=== PATIENT | female | born 1980 | race Caucasian/White ===

== ENCOUNTER 2019-12-29 17:57 | Inpatient (IN) | payer MEDICAID, OTHER ==
--- NOTE | 2019-12-29 18:13 | ED ---
Psych HPI <Markie Starks - Last Filed: 12/29/19 18:12> <Alek Cardoza - Last Filed: 12/30/19 05:45> - General Source: patient, EMS, RN notes reviewed Mode of arrival: EMS - History of Present Illness MD Complaint: suicidal ideation, feels depressed <John Soriano - Last Filed: 12/30/19 12:15> - General Stated Complaint: Mental health Time Seen by Provider: 12/29/19 18:00 - History of Present Illness Initial Comments: This is a 39-year-old female history depression and who is been in treatment for substance abuse including alcohol and opiates for the past week who was brought in today by EMS because of voicing depression and suicidal thoughts and ideation. She apparently has had a plan to go to a home an overdose. She states that a lot of frustration she doing with today that set this off a. She denies any drug or alcohol use since treatment started. No fevers chills nausea vomiting sweats or other symptoms (John Soriano) - Related Data Home Medications Medication Instructions Recorded Confirmed Methadone HCl [Methadone Intensol] 90 mg PO DAILY 12/29/19 12/29/19 hydroCHLOROthiazide [Hydrodiuril] 25 mg PO DAILY 12/30/19 12/30/19 Allergies Allergy/AdvReac Type Severity Reaction Status Date / Time No Known Allergies Allergy Verified 12/29/19 22:35 Review of Systems ROS Other: All systems not noted in ROS Statement are negative. <Markie Starks - Last Filed: 12/29/19 18:12> ROS Other: All systems not noted in ROS Statement are negative. <Alek Cardoza - Last Filed: 12/30/19 05:45> ROS Other: All systems not noted in ROS Statement are negative. <John Soriano - Last Filed: 12/30/19 12:15> ROS Statement: Those systems with pertinent positive or pertinent negative responses have been documented in the HPI. General Exam General appearance: alert, anxious Head exam: Present: atraumatic, normocephalic, normal inspection Eye exam: Present: normal appearance, PERRL, EOMI. Absent: scleral icterus, conjunctival injection, periorbital swelling ENT exam: Present: normal exam, mucous membranes moist Neck exam: Present: normal inspection. Absent: tenderness, meningismus, lymphadenopathy Respiratory exam: Present: normal lung sounds bilaterally. Absent: respiratory distress, wheezes, rales, rhonchi, stridor Cardiovascular Exam: Present: regular rate, normal rhythm, normal heart sounds. Absent: systolic murmur, diastolic murmur, rubs, gallop, clicks GI/Abdominal exam: Absent: distended, tenderness, guarding, rebound, rigid Extremities exam: Present: normal inspection, full ROM, normal capillary refill. Absent: tenderness, pedal edema, joint swelling, calf tenderness Back exam: Present: normal inspection Neurological exam: Present: alert, oriented X3, CN II-XII intact Psychiatric exam: Present: depressed, suicidal ideation Skin exam: Present: warm, dry, intact, normal color. Absent: rash <John Soriano - Last Filed: 12/30/19 12:15> - General Exam Comments Initial Comments: This is a well-developed well-nourished awake alert oriented 3 female (John Soriano) Course <Alek Cardoza - Last Filed: 12/30/19 05:45> <John Soriano - Last Filed: 12/30/19 12:15> Vital Signs 12/29/19 12/30/19 18:19 06:00 Temperature 98.7 F 98.4 F Pulse Rate 77 94 Respiratory 18 18 Rate Blood Pressure 148/90 150/92 O2 Sat by Pulse 97 98 Oximetry - Reevaluation(s) Reevaluation #1: 12/29/19 21:17 Patient's care will be endorsed to Dr. Cardoza at our shift change (John Soriano) Reevaluation #2: 12/30/19 05:46 I did see this patient for the purpose of following clinical certificate (Alek Cardoza) Medical Decision Making - EKG Data -: EKG Interpreted by Me EKG shows normal: sinus rhythm, axis (Normal), intervals (Normal), QRS complexes (Normal) Rate: normal (Rate 69 bpm) Interpretation: nonspecific ST-T wave changes <Alek Cardoza - Last Filed: 12/30/19 05:45> - Lab Data Result diagrams: 12/30/19 09:14 12/30/19 09:14 <John Soriano - Last Filed: 12/30/19 12:15> - Lab Data Lab Results 0912/29/19 12/29/19 Range/Units 18:28 18:28 18:28 Urine Color Light Yellow Urine Appearance Clear (Clear) Urine pH 7.0 (5.0-8.0) Ur Specific [place] 1.011 (1.001-1.035) Urine Protein Negative (Negative) Urine Glucose (UA) Negative (Negative) Urine Ketones Negative (Negative) Urine Blood Negative (Negative) Urine Nitrite Negative (Negative) Urine Bilirubin Negative (Negative) Urine Urobilinogen <2.0 (<2.0) mg/dL Ur Leukocyte Esterase Small H (Negative) Urine RBC <1 (0-5) /hpf Urine WBC 1 (0-5) /hpf Ur Squamous Epith Cells <1 (0-4) /hpf Urine Mucus Rare H (None) /hpf Urine HCG, Qual Not Detected (Not Detectd) Urine Opiates Screen Not Detected (NotDetected) Ur Oxycodone Screen Not Detected (NotDetected) Urine Methadone Screen Detected H (NotDetected) Ur Propoxyphene Screen Not Detected (NotDetected) Ur Barbiturates Screen Not Detected (NotDetected) U Tricyclic Antidepress Not Detected (NotDetected) Ur Phencyclidine Scrn Not Detected (NotDetected) Ur Amphetamines Screen Not Detected (NotDetected) U Methamphetamines Scrn Not Detected (NotDetected) U Benzodiazepines Scrn Not Detected (NotDetected) Urine Cocaine Screen Not Detected (NotDetected) U Marijuana (THC) Screen Not Detected (NotDetected) Disposition <Markie Starks - Last Filed: 12/29/19 18:12> <Alek Cardoza - Last Filed: 12/30/19 05:45> <John Soriano - Last Filed: 12/30/19 12:15> Clinical Impression: Depression, Suicidal ideation Disposition: TRANSFER TO PSYCH HOSP/UNIT Condition: Stable
[2019-12-29 18:57] LABS: Amphetamine Screen,Urine Not Detected (NotDetected); Barbiturate Screen,Urine Not Detected (NotDetected); Benzodiazepines Screen,Urine Not Detected (NotDetected); Cocaine Screen,Urine Not Detected (NotDetected); Methadone Screen, Urine Detected (NotDetected); Opiate Screen,Urine Not Detected (NotDetected); Oxycodone Screen, Urine Not Detected (NotDetected); Phencyclidine Screen,Urine Not Detected (NotDetected); Tricyclic Antidepressant,Urine Not Detected (NotDetected); Urn Cannabinoid Scrn Not Detected (NotDetected)
[2019-12-29] MEDS ORDERED: LORazepam 1 MG TAB PO STA (19:53)
[2019-12-29] MEDS ORDERED: ACETAMINOPHEN TAB 500 MG TAB PO STA (19:58)
[2019-12-30] MEDS ORDERED: LORazepam 1 MG TAB PO STA (05:02)
[2019-12-30] MEDS ORDERED: LORazepam 1 MG TAB PO PRN (06:48)
[2019-12-30] MEDS ORDERED: ACETAMINOPHEN TAB 325 MG TAB PO PRN (06:48)
[2019-12-30] MEDS ORDERED: MAG HYDROX/AL HYDROX/SIMETH 30 ML CUP PO PRN (06:48)
[2019-12-30] MEDS ORDERED: LORazepam 2 MG/ML INJ IM PRN (06:51)
[2019-12-30 07:26] LABS: Appearance,Urine Clear (Clear); Bilirubin,Urine Negative (Negative); Blood,Urine Negative (Negative); Color,Urine Light Yellow; Glucose,Urine (UA) Negative (Negative); Ketones,Urine Negative (Negative); Leukocyte Esterase,Urine Small (Negative); Mucus,Urine Rare /hpf; Nitrite,Urine Negative (Negative); Protein,Urine Negative (Negative); RBC,Urine <1 /hpf (0-5); Specific Gravity,Urine 1.011 (1.001-1.035); Squamous Epithelial Cell,Urine <1 /hpf (0-4); Urobilinogen,Urine <2.0 mg/dL (<2.0); WBC,Urine 1 /hpf (0-5)
[2019-12-30] MEDS: METHADONE 10 MG TAB PO SCH (08:14)
[2019-12-30] MEDS ORDERED: NON FORMULARY DRUG (Methadone Hcl [Methadone Intensol] 10 MG/ML Oral.Conc) PO SCH (09:00)
[2019-12-30 09:45] LABS: Basophils # (A) 0.1 k/uL (0-0.2); Basophils % (A) 1 %; Eosinophils # (A) 0.1 k/uL (0-0.7); Eosinophils % (A) 1 %; HCT 42.9 % (34.0-46.0); HGB 13.5 gm/dL (11.4-16.0); Hypochromasia Slight; Lymphocytes # (A) 1.4 k/uL (1.0-4.8); Lymphocytes % (A) 12 %; MCHC 31.4 g/dL (31.0-37.0); MCV 89.3 fL (80.0-100.0); Mean Platelet Volume 8.6; Monocytes # (A) 0.6 k/uL (0-1.0); Monocytes % (A) 5 %; Neutrophils # (A) 9.3 k/uL (1.3-7.7); Neutrophils % (A) 80 %; Platelet Count 270 k/uL (150-450); RBC 4.81 m/uL (3.80-5.40); RDW 14.4 % (11.5-15.5); WBC 11.7 k/uL (3.8-10.6)
[2019-12-30 10:05] LABS: ALT 56 U/L (4-34); AST 39 U/L (14-36); African American GFR (CKD) >90 (>60 ml/min/1.73 sqM); Albumin 4.6 g/dL (3.5-5.0); Alkaline Phosphatase 120 U/L (38-126); Anion Gap 9 mmol/L; Blood Urea Nitrogen 15 mg/dL (7-17); Carbon Dioxide 26 mmol/L (22-30); Chloride 100 mmol/L (98-107); Cholesterol 168 mg/dL (<200); Glucose 130 mg/dL (74-99); HDL Cholesterol 52 mg/dL (40-60); LDL Cholesterol,Calculated 100 mg/dL (0-99); Non-African American GFR(CKD) 87 (>60 ml/min/1.73 sqM); Potassium 4.8 mmol/L (3.5-5.1); Sodium 135 mmol/L (137-145); Total Bilirubin 0.4 mg/dL (0.2-1.3); Total Protein 7.3 g/dL (6.3-8.2); Triglycerides 78 mg/dL (<150)
[2019-12-30] MEDS: OLANZapine 5 MG TAB PO SCH ×3 (12:47→21:16)
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
[2019-12-30 18:00] LABS: Hemoglobin A1C 5.5 % (4.0-6.0)
[2019-12-30] MEDS: MIRTAZAPINE 15 MG TAB PO SCH (21:16)
[2019-12-30] MEDS: OLANZapine 5 MG TAB PO PRN (22:23)
[2019-12-31] MEDS: ZIPRASIDONE 20 MG VIAL IM PRN (01:09)
[2019-12-31] MEDS: OLANZapine 5 MG TAB PO SCH ×2 (08:05→21:23)
[2019-12-31] MEDS: METHADONE 10 MG TAB PO SCH (08:05)
[2019-12-31] MEDS: OLANZapine 5 MG TAB PO PRN (11:07)
[2019-12-31] MEDS ORDERED: cloNIDine 0.2 MG/24HR PATCH TRANSDERM SCH (12:30)
--- NOTE | 2019-12-31 13:31 | PN ---
PROGRESS NOTE DATE OF SERVICE: 12/31/2019 CHIEF COMPLAINT: The patient was distressed and agitated. She had made a suicide statement at [facility]. She was admitted on petition for involuntary hospitalization. INTERVAL HISTORY: Patient has been doing fair. She had a quiet day yesterday. She did have some ups and downs. She talked about being distressed about being in the hospital. She also felt distressed with the idea that people misinterpreted what she was saying and doing when she was at [facility]. She said that if they would have given her some time to have some quiet time for herself and possibly be able to talk to a therapist that she would have been able to calm herself to the point of not needing to come to the hospital. She has had some ups and downs with anxiety. She slept fairly well last night. It is noted that at 1 in the morning, she woke up from a nightmare and could not get back to sleep. She received Geodon IM. She said after that she was able to sleep for the rest of the night. This morning she has been up. She attended groups this morning. She noted that someone from [facility] called her and was checking up to see how she was doing. She seemed to say that she got distressed with the phone call and that the person on the other end said that it was not possibly a good time to be talking as the phone conversation seemed to be upsetting her, so they ended the conversation. At this point, the patient says that she wants to return to [facility] as soon as possible. She gave some mixed information in regard to that, saying that she is still very angry at [facility] for not giving her the kind of support she thought she deserved. I encouraged the patient to give [facility] staff a call today to talk about possible return. She said that she was uncomfortable doing that and was wanting a manager social work to "advocate for me because I always feel people do not believe what I say." It is noteworthy that the patient seems a little more calm and reasonable today in her view of her situation. She still is discouraged about being in the hospital, though she has been cooperative. She did request a p.r.n. Zyprexa at 11 this morning, which would be in addition to the morning dose of 5 mg of Zyprexa. Vital signs at 8:00 am include blood pressure 169/90, pulse 103 and regular, temp 98.2, respirations 20. The patient tolerates her psychotropic medications. She does say she feels the Zyprexa makes her a little tired though she feels that it gives her some benefit. MENTAL STATUS EXAM: Patient sat without restlessness. She did not give much eye contact. She tended to look slightly down in her gaze. Her movements were slowed. She answered questions with brief responses. She was not too spontaneous or interactive. Her affect was flat. Her mood withdrawn. She was somewhat distressed. There was no indication of thought disorder. She denied thoughts of harm to self or others. Cognition was clear. ASSESSMENT: I will continue the current diagnosis and treatment plan. Continue to encourage the patient to engage in group activity. We talked about discharge planning. As noted, I encouraged the patient to call [facility], though her choice is to have a manager social work call on her behalf. There is a sense that the patient feels that she does not get the kind of support that she should be entitled to and seems to be searching for opportunities to have that displayed in a more concrete way. I will start the patient on Catapres patch 0.2 mg due to her high blood pressure, which in part may be related to withdrawal in that regard. Clonidine has been useful as an adjunct in withdrawal. I discussed discharge planning. Patient asked whether it was likely she could be discharged back to [facility] on Thursday. I shared with her that it is uncertain in that she would be seeing a new doctor to her on Thursday. I strongly encouraged her to attend groups and to work on coping mechanisms when she does get into high anxiety situations. We will focus on stabilization and discharge planning. MMODL / IJN: [id number] /
--- NOTE | 2019-12-31 16:39 | P.MDCNMH ---
History of Present Illness H&P Date: 12/31/19 39-year-old female with past medical history of hypertension is brought to the ED for major depression and suicidal thoughts and ideation. She has been admitted to mental health unit for further management and observation. [facility] physicians has been consulted for medical management as patient. Patient states that she hates being here and would like to be discharged. She has no other complaints. She denies any headache, lower extremity edema, nausea vomiting, fever chills, cough, chest pain, shortness breath, palpitations, changes in urination or bowel habits pain no changes in appetite or weight. She denies any dizziness, numbness/weakness/tingling of the extremities. Her vital signs show blood pressure 169/90 with pulse of 103. CBC shows leukocytosis with WBC count of 11.7. CMP shows sodium 135 and glucose of 130, AST 39, ALT 56. A1c is 5.5. Lipid panel shows LDL of 100. UDS positive for methadone. Urinalysis shows small leukocyte esterase. Review of Systems Pertinent positives and negatives as discussed in HPI, a complete review of systems was performed and all other systems are negative. Past Medical History Past Medical History: Hypertension History of Any Multi-Drug Resistant Organisms: None Reported Past Surgical History: Orthopedic Surgery Additional Past Surgical History / Comment(s): Right ankle surgery. Past Psychological History: ADD/ADHD, Anxiety, Depression, Panic Disorder, PTSD Smoking Status: Never smoker Past Alcohol Use History: Abuse Past Drug Use History: Heroin, Marijuana Medications and Allergies Home Medications Medication Instructions Recorded Confirmed Type Methadone HCl [Methadone Intensol] 90 mg PO DAILY 12/29/19 12/29/19 History hydroCHLOROthiazide [Hydrodiuril] 25 mg PO DAILY 12/30/19 12/30/19 History Allergies Allergy/AdvReac Type Severity Reaction Status Date / Time No Known Allergies Allergy Verified 12/29/19 22:35 Physical Exam Vitals: Vital Signs Temp Pulse Pulse Resp BP BP 12/31/19 08:07 98.2 F 103 H 20 169/90 12/30/19 22:36 109 H 160/80 General: [non toxic], [no distress], [appears at stated age] Derm: [warm], [dry] Head: [atraumatic], [normocephalic], [symmetric] Eyes: [EOMI], [no lid lag], [anicteric sclera] Mouth: [no lip lesion], [mucus membranes moist] Cardiovascular: [S1S2 reg], [no murmur], [positive posterior tibial pulse bilateral], Lungs: [CTA bilateral], [no rhonchi, no rales] , [no accessory muscle use] Abdominal: [soft], [ nontender to palpation], [no guarding], [no appreciable organomegaly] Ext: [no gross muscle atrophy], [no edema], [no contractures] Neuro: [ CN II-XI grossly intact], [no focal neuro deficits] Psych: [Alert], [oriented], [appropriate affect] Cranial Nerve Examination - Cranial Nerves Cranial Nerve II- Optic: Intact Cranial Nerve III- Oculomotor: Intact Cranial Nerve IV- Trochlear: Intact Cranial Nerve V- Trigeminal: Intact Cranial Nerve - Abducens: Intact Cranial Nerve VII- Facial: Intact Cranial Nerve VIII- Auditory: Intact Cranial Nerve IX- Glossopharyngeal: Intact Cranial Nerve X- Vagus: Intact Cranial Nerve XI- Accessory: Intact Cranial Nerve XII- Hypoglossal: Intact Results CBC & Chem 7: 12/30/19 09:14 12/30/19 09:14 Assessment and Plan Assessment: Hypertension Leukocytosis Abnormal UA Transaminitis Dyslipidemia Obesity Plans: Restart hydrochlorothiazide. Likely reactive. No signs of infection. Plan: Continue to monitor. Small leukocyte esterase. Patient is asymptomatic. Plans: Nothing further to do. Unknown etiology. Plans: Obtain acute hep panel. LDL 100. Plans: Patient would benefit from dietary modifications. BMI 37.8. Plans: Patient will benefit from structured weight loss program. Thank you for this consult. Please call with any additional questions or concerns.
[2019-12-31] MEDS: MIRTAZAPINE 15 MG TAB PO SCH (21:23)
[2020-01-01] MEDS ORDERED: ZIPRASIDONE 20 MG VIAL IM ONE (00:58)
[2020-01-01] MEDS: ZIPRASIDONE 20 MG VIAL IM PRN ×2 (00:58→23:35)
[2020-01-01] MEDS ORDERED: WATER FOR INJECTION, STERILE 10 ML IV ONE (00:58)
[2020-01-01] MEDS: hydroCHLOROthiazide 25 MG TAB PO SCH (07:53)
[2020-01-01] MEDS: METHADONE 10 MG TAB PO SCH (07:53)
[2020-01-01] MEDS: OLANZapine 5 MG TAB PO SCH ×2 (07:54→21:04)
[2020-01-01 10:52] LABS: Hepatitis A Antibody IgM Non-Reactive (Non-Reactive); Hepatitis B Core IgM Non-Reactive (Non-Reactive); Hepatitis B Surface Antigen Non-Reactive (Non-Reactive); Hepatitis C IgG Antibody Non-Reactive (Non-Reactive)
[2020-01-01] MEDS: MIRTAZAPINE 15 MG TAB PO SCH (21:04)
[2020-01-02] MEDS: hydroCHLOROthiazide 25 MG TAB PO SCH (08:04)
[2020-01-02] MEDS: OLANZapine 5 MG TAB PO SCH (08:04)
[2020-01-02] MEDS: METHADONE 10 MG TAB PO SCH (08:05)
--- NOTE | 2020-01-02 09:23 | PN ---
PROGRESS NOTE DATE OF SERVICE: 01/01/2020. CHIEF COMPLAINT: The patient was distressed and agitated. She had made a suicide statement at [facility]. She was admitted on petition for involuntary hospitalization. INTERVAL HISTORY: Patient has been doing fair. She seems to be making slow progress. It is noted that she was permitted to sign in voluntarily. I had previously reviewed issues relating to this versus the petition process at length. The patient has been able to engage appropriately in treatment. She had a quiet day yesterday. She comes out on the unit. She has been appropriate in her interactions. She still has some periods where she gets anxious and irritable, though generally seems to be able to respond to staff support. She has been attending groups. One note from group as of yesterday is as follows "the patient became irritated when peer upon returning to AT room to participate in group. Patient stated to radio news writer "she keeps asking me if I am okay and following me around and I am not okay. Obviously I am here." The patient required redirection to participate in task. The patient was redirectable." The patient slept fairly well last night. It is noted that she again described having in a nightmare around midnight. She was in an agitated state. She received a Geodon 20 mg IM at 1 in the morning that seemed to settle things down for her for the rest of the night. Today, she has been up. She continues to be somewhat discouraged about the idea that she is in the hospital at all. She believes that things would have been better for her if she would have been properly supported at [facility]. It is noteworthy that when I talked to her today, she had a somewhat different view compared to yesterday. Yesterday, she was saying that Verón[facility] Lancaster had called her in the morning to see how she was doing, though she got distressed with a telephone call. She was saying as the day went on that she wanted to return to [facility] and was needing to find out whether a bed would be available for her. When I encouraged her to call [facility], she said she was uncomfortable with that idea and was wanting social work to "advocate for me." Today, she says that she would be comfortable talking with [facility] and she anticipated doing that as soon as the interview was done. She says that she is comfortable with the idea of going back to [facility] and in fact requested that her medications be sent to [facility] pharmacy when she is discharged. She is hopeful to be discharged as soon as an opening is available at [facility]. She said that she believes that based on her understanding when she left [facility] that a bed would be available when she was ready for discharge from this facility. The patient tolerates her psychotropic medications. MENTAL STATUS: Patient sat without restlessness. She gave good eye contact. She answered questions appropriately. Her thoughts were clear. She did not say a lot. She was not too spontaneous or interactive, though she responded appropriately and completely to questions. Her affect was somewhat constricted. Her mood was reserved though not clearly down or depressed. Overall, she seemed a little more calm and interactive compared to previous days. She did not appear to be significantly distressed, though she was quite focused on the idea of discharge. There was no indication of thought disorder. She voiced no thoughts of harm to self or others. Cognition was clear. ASSESSMENT: I will continue the current diagnosis and treatment plan. Continue psychotropic medications the same. Patient appears to be making reasonable progress. It does seem like she is appropriate for discharge back to [facility] when a bed is available. We will focus on stabilization and discharge planning. MMVALENTINOL / IJN: [id number] /
--- NOTE | 2020-01-02 11:17 | P.PN ---
Progress Note - Text Progress Note Date: 01/02/20 Interval History: Patient was seen sitting in her room alone and was directable and agreeable to speak with policy writer typist in the office. And appears to be anxious today and claims that her mood was depressed when she came into the hospital. She states that "I said some things that I probably shouldn't have and he told him I want to kill myself that's why they brought me here". Patient was fairly superficial with policy writer typist and was heavily focused on discharge today. She argued several times that she should be discharged. Patient did claim that her anxiety and that she still having panic attacks. She also claims that she had a nightmare last night and needed a Geodon shot. She states that she is okay having her medications adjusted. She states that she is having fatigue and tiredness during the day. She states that she has gone to some groups however remains focused on going back to [facility]. At this time patient denies any suicidal or homical ideations, intent or plan. Patient denies any auditory, visual hallucinations and denies any paranoia or delusions. Mental Status Exam: General Appearance: Patient appears to be overweight, stated age is alert, argumentative at times and difficult to redirect. Fair hygiene and grooming. Behavior: Patient is calmly seated without any agitated behavior. Argumentative at times. Speech: Patient's speech is fluent and nonpressured. Mood/Affect: Mood is improving mildly however remains depressed and anxious, affect is congruent Suicidality/Homicidality: Patient denies having any suicidal or homicidal ideation intent or plan. Perceptions: Patient denies any visual hallucinations and denies any auditory hallucinations Though content/process: Patient is preoccupied with discharge. She is logical and argumentative. Memory and concentration: AOX3, grossly intact for the purposes of this session Judgment and insight: Superficial/poor, Improving mildly Assessment Major depressive disorder, recurrent, without psychotic features Panic disorder PTSD Alcohol use disorder Opioid dependence, currently on agonist therapy. Plan: -Patient continues to meet criteria for inpatient psychiatric admission for symptom stabilization and safety. Patient has signed adult voluntary form and medication consent and was placed in patient's chart. -Medications: Patient to be continued on her current dose of methadone 90 mg daily for opioid dependence. Changed Zyprexa dosing to 7.5 mg daily at bedtime for mood stabilization/depression/insomnia. Discontinued Remeron. Patient is agreeable to start Effexor 37.5 mg daily for mood/anxiety. -When necessary Geodon for agitation/aggression. -NRT -not needed as patient does not smoke. -SW on board for discharge planning. Encouraged the patient to participate in milieu. Patient is agreeable to go back to [facility] once she is psychiatrically stabilized. Likely discharge in 1-2 days.
[2020-01-02] MEDS: VENLAFAXINE HCL 37.5 MG TAB PO SCH (11:55)
[2020-01-02] MEDS: MAGNESIUM HYDROXIDE 2,400 MG/10 ML CUP PO PRN (18:56)
[2020-01-02] MEDS: OLANZapine 2.5 MG TAB PO SCH (20:58)
[2020-01-02] MEDS ORDERED: OLANZapine 5 MG TAB PO SCH (21:00)
[2020-01-03] MEDS: METHADONE 10 MG TAB PO SCH (08:22)
[2020-01-03] MEDS: VENLAFAXINE HCL 37.5 MG TAB PO SCH (08:23)
[2020-01-03] MEDS: hydroCHLOROthiazide 25 MG TAB PO SCH (08:23)
--- NOTE | 2020-01-03 12:52 | P.PN ---
Progress Note - Text Progress Note Date: 01/03/20 Interval History: Patient was seen sitting in on group this morning and was directable and agree able to speak with play writer in the office. Patient appears to be mildly less anxious today however claims that she is doing "better". Patient was concrete and gave minimal information. She was superficially cooperative. She states that she would like her medications left the way they are. She states that she was able to sleep better last night and does not need Geodon or Remeron. She denied having any nightmares last night. She claims that her last panic attack was yesterday. She continues to be preoccupied with discharge and states that "being here is making my anxiety worse". She was focused on going back to [facility] for rehab. She claims that she has been going to some groups however states that "I'm not learning much from them all I'm doing is playing cards". At this time patient denies any suicidal or homical ideations, intent or plan. Patient denies any auditory, visual hallucinations and denies any paranoia or delusions. Mental Status Exam: General Appearance: Patient appears to be overweight, stated age is alert, less argumentative today. Superficial at times. Appears to be less lethargic. Fair hygiene and grooming. Behavior: Patient is calmly seated without any agitated behavior. Less argumentative today. Superficial at times. Speech: Patient's speech is fluent and nonpressured. Mood/Affect: Mood is improving mildly, appears mildly anxious, affect is congruent Suicidality/Homicidality: Patient denies having any suicidal or homicidal ideation intent or plan. Perceptions: Patient denies any visual hallucinations and denies any auditory hallucinations Though content/process: Patient is preoccupied with discharge. She is logical and less argumentative today. Logical. Memory and concentration: AOX3, grossly intact for the purposes of this session Judgment and insight: Superficial/poor, Improving mildly Assessment Major depressive disorder, recurrent, without psychotic features Panic disorder PTSD Alcohol use disorder Opioid dependence, currently on agonist therapy. Plan: -Patient continues to meet criteria for inpatient psychiatric admission for symptom stabilization and safety. Patient has signed adult voluntary form and medication consent and was placed in patient's chart. -Medications: Patient to be continued on her current dose of methadone 90 mg daily for opioid dependence. Continue with Zyprexa 7.5 mg daily at bedtime for mood stabilization/depression/insomnia. Continue with Effexor 37.5 mg daily for mood/anxiety. -When necessary Sauravdon for agitation/aggression. -NRT -not needed as patient does not smoke. -SW on board for discharge planning. Encouraged the patient to participate in milieu. Patient states that she is willing to go back to [facility] however after speaking with psych social worker, states that patient is no longer allowed to go back to [facility] due to her outbursts toward staff members there. We will look into other placement options today with patient. Likely discharge her when to 2 days.
[2020-01-03] MEDS: OLANZapine 2.5 MG TAB PO SCH (20:18)
[2020-01-04] MEDS: hydroCHLOROthiazide 25 MG TAB PO SCH (08:36)
[2020-01-04] MEDS: VENLAFAXINE HCL 37.5 MG TAB PO SCH (08:37)
[2020-01-04] MEDS: METHADONE 10 MG TAB PO SCH (08:37)
[2020-01-04] MEDS: MAGNESIUM HYDROXIDE 2,400 MG/10 ML CUP PO PRN (08:38)
[2020-01-04] MEDS ORDERED: VENLAFAXINE HCL 37.5 MG TAB PO STA (11:09)
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
[2020-01-04 14:01] VITALS: BP 136/60; PULSE 80; RESP 20; TEMP 98.1
[2020-01-05] MEDS ORDERED: VENLAFAXINE HCL 75 MG TAB PO SCH (09:00)
== END 2020-01-04 12:01 | disposition home or self-care (01) | DRG 885 ==
LOC: EC 17:57 → 3MHU 12-30 06:16
PROVIDERS: ADMIT Psychiatry & Neurology Psychiatry; ATTEND Psychiatry & Neurology Psychiatry
DX: F33.2 Major depressive disorder, recurrent severe without psychotic features (principal); F11.20 Opioid dependence, uncomplicated; R45.851 Suicidal ideations; Z68.41 Body mass index [BMI] 40.0-44.9, adult; F43.10 Post-traumatic stress disorder, unspecified; F41.0 Panic disorder [episodic paroxysmal anxiety]; I10 Essential (primary) hypertension; G47.00 Insomnia, unspecified; E66.3 Overweight; Z62.810 Personal history of physical and sexual abuse in childhood; F10.20 Alcohol dependence, uncomplicated; Z79.899 Other long term (current) drug therapy; Z56.0 Unemployment, unspecified
CPT/HCPCS: 80053; 80061; 80074; 80306; 81001; 81025; 82075; 83036; 84443; 85025; 93005; 99285